=== PATIENT | female | born 1980 ===

== ENCOUNTER → 2019-04-19 15:44 | Outpatient (CLI) | payer OTHER, SELFPAY ==
--- NOTE | 2019-04-19 | DI.MRI.S_ITS ---
PROCEDURE: MR FOOT RT WO/W CON INDICATIONS: SWELLING MASS RIGHT FOOT TECHNIQUE: Noncontrast coronal T1 spin echo and STIR, sagittal T1 spin echo with fat saturation and STIR, axial T1 spin echo and T2 fast spin echo with fat saturation. After the administration of contrast, axial/sagittal/coronal T1 spin echo with fat saturation through the right foot. COMPARISON: None. FINDINGS: Image quality: Excellent. Bones: The visualized bone marrow demonstrates normal signal on all sequences. The overlying cortex appears intact. No abnormal intraosseous enhancement. Soft tissues: Surface cannot marker is seen placed over the plantar aspect of second metatarsal shaft. No soft tissue masses are visualized. The scanned muscles demonstrate normal overall bulk and internal signal. Subcutaneous tissues appear normal as well. No abnormal soft tissue enhancement. IMPRESSION: No soft tissue mass or area of abnormal enhancement is seen at the plantar aspect of forefoot. No marrow signal abnormality. No abnormal intraosseous enhancement. Focal tendons and ligaments are grossly intact. Dictated by: Sanjeev Pérez M.D. on 04/19/2019 at 17:23 Approved by: Sanjeev Pérez M.D. on 04/19/2019 at 17:46
== END ==
PROVIDERS: Visit Provider Podiatrist
DX: R22.41 Localized swelling, mass and lump, right lower limb (principal); M79.671 Pain in right foot
CPT/HCPCS: 73720; A9579